=== PATIENT | male | born 1945 | race Caucasian/White ===

== ENCOUNTER → 2019-12-10 | Outpatient (CLI) | payer OTHER | END | disposition home or self-care (01) | LOC: SHCH 15:53 | PROVIDERS: ATTEND Internal Medicine Cardiovascular Disease | DX: R06.09 Other forms of dyspnea (principal); R07.9 Chest pain, unspecified | CPT/HCPCS: 93306; 93356 ==

== ENCOUNTER → 2023-09-30 | Outpatient (CLI) | payer OTHER ==
[2023-09-30 08:44] LABS: INR < 0.93 (0.85-1.15); PROTHROMBIN TIME 10.5 SEC (9.6-11.6)
[2023-09-30 08:45] LABS: PARTIAL THROMBOPLASTIN TIME 28.3 SEC (26.3-35.5)
== END | disposition home or self-care (01) ==
LOC: RAH 06:52 → EDBD 08:00
PROVIDERS: ATTEND Internal Medicine
DX: E04.1 Nontoxic single thyroid nodule (principal); Z79.01 Long term (current) use of anticoagulants
CPT/HCPCS: 10005; 36415; 76942; 85610; 85730; 88112; 88173; 88305; 88312

== ENCOUNTER → 2023-10-01 | Outpatient (CLI) | payer OTHER | END | disposition home or self-care (01) | LOC: RAH 08:26 | PROVIDERS: ATTEND Internal Medicine | DX: K44.9 Diaphragmatic hernia without obstruction or gangrene (principal); R13.10 Dysphagia, unspecified | CPT/HCPCS: 74220 ==

== ENCOUNTER 2024-03-15 11:47 | Emergency (ER) | payer OTHER ==
[~2024-03-15] VITALS: Ht 177.8 cm; Wt 79.4 kg
[2024-03-15 12:20] LABS: BASOPHILS # (AUTO) 0.04 K/uL (0.00-0.20); BASOPHILS % (AUTO) 0.4 % (0.0-5.0); EOSINOPHILS # (AUTO) 0.08 K/uL (0.00-0.70); EOSINOPHILS % (AUTO) 0.9 % (0.0-8.0); HEMATOCRIT 47.8 % (42-54); IMMATURE GRANULOCYTE ABSOLUTE 0.04 K/uL (0-1); LYMPHOCYTES % (AUTO) 33.4 % (21.0-51.0); MEAN CORPUSCULAR HEMOGLOBIN 32.2 pg (27.0-33.0); MEAN CORPUSCULAR HGB CONC 34.5 g/dL (32.0-36.0); MEAN CORPUSCULAR VOLUME 93.2 fL (79-99); MONOCYTES # (AUTO) 0.7 K/uL (0.1-1.0); MONOCYTES % (AUTO) 7.8 % (3.0-13.0); NEUTROPHILS # (AUTO) 5.1 K/uL (1.8-7.7); NEUTROPHILS % (AUTO) 57.1 % (40.0-77.0); PLATELET COUNT (AUTO) 255 K/uL (130-400); RED BLOOD CELL COUNT(AUTO) 5.13 MIL/uL (4.50-6.20); RED CELL DISTRIBUTION WIDTH 12.6 % (11.0-15.5); WHITE BLOOD COUNT (AUTO) 8.9 K/uL (4.8-10.8)
[2024-03-15 12:30] LABS: CREATININE 0.9 mg/dL (0.5-1.3); POTASSIUM 4.2 mmol/L (3.5-5.1)
[2024-03-15] MEDS: MAGNESIUM 2GM PREMIX 50ML 50 ML IV SCH (13:09)
[2024-03-15] MEDS: DILTIAZEM 25MG INJ IVP ONE (14:07)
[2024-03-15 14:19] VITALS: BP 118/76; PULSE 109; RESP 22; O2SAT 96
== END 2024-03-15 15:18 | disposition home or self-care (01) ==
LOC: EDH 11:47
DX: I48.91 Unspecified atrial fibrillation (principal); E11.9 Type 2 diabetes mellitus without complications; Z98.890 Other specified postprocedural states; Z88.8 Allergy status to other drugs, medicaments and biological substances
CPT/HCPCS: 99285; 96365; 71045; 96366; 96375; 83735; 84484; 80048; 85025; 36415; 93005; J3475; J3490

== ENCOUNTER → 2024-04-10 | Outpatient (CLI) | payer OTHER | END | disposition home or self-care (01) | LOC: SHCH 13:24 | PROVIDERS: ATTEND Internal Medicine Cardiovascular Disease | DX: I08.3 Combined rheumatic disorders of mitral, aortic and tricuspid valves (principal); I48.0 Paroxysmal atrial fibrillation; R06.02 Shortness of breath; E78.5 Hyperlipidemia, unspecified; E11.9 Type 2 diabetes mellitus without complications | CPT/HCPCS: 93306 ==

== ENCOUNTER → 2024-04-13 | Outpatient (CLI) | payer OTHER ==
[2024-04-13] MEDS: REGADENOSON 0.4 MG/5 ML PF SYG IVP ONE (15:32)
== END | disposition home or self-care (01) ==
LOC: SHCH 08:26
PROVIDERS: ATTEND Internal Medicine Cardiovascular Disease
DX: I25.10 Atherosclerotic heart disease of native coronary artery without angina pectoris (principal); R06.00 Dyspnea, unspecified
CPT/HCPCS: 78452; 96374; 93017; J2785; A9500 ×2

== ENCOUNTER 2024-09-30 05:57 | Day surgery (SDC) | payer OTHER ==
[2024-09-29 11:43] LABS: BASOPHILS # (AUTO) 0.04 K/uL (0.00-0.20); BASOPHILS % (AUTO) 0.5 % (0.0-5.0); EOSINOPHILS # (AUTO) 0.13 K/uL (0.00-0.70); EOSINOPHILS % (AUTO) 1.7 % (0.0-8.0); HEMATOCRIT 47.9 % (42-54); IMMATURE GRANULOCYTE ABSOLUTE 0.03 K/uL (0-1); LYMPHOCYTES # (AUTO) 2.6 K/uL (1.0-4.8); LYMPHOCYTES % (AUTO) 33.9 % (21.0-51.0); MEAN CORPUSCULAR HEMOGLOBIN 31.8 pg (27.0-33.0); MEAN CORPUSCULAR HGB CONC 32.8 g/dL (32.0-36.0); MEAN CORPUSCULAR VOLUME 97.2 fL (79-99); MONOCYTES # (AUTO) 0.6 K/uL (0.1-1.0); MONOCYTES % (AUTO) 8.3 % (3.0-13.0); NEUTROPHILS # (AUTO) 4.2 K/uL (1.8-7.7); NEUTROPHILS % (AUTO) 55.2 % (40.0-77.0); PLATELET COUNT (AUTO) 272 K/uL (130-400); RED BLOOD CELL COUNT(AUTO) 4.93 MIL/uL (4.50-6.20); RED CELL DISTRIBUTION WIDTH 12.4 % (11.0-15.5); WHITE BLOOD COUNT (AUTO) 7.6 K/uL (4.8-10.8)
[2024-09-29 11:50] LABS: INR 1.09 (0.85-1.15); PROTHROMBIN TIME 11.7 SEC (9.6-11.6)
[2024-09-29 11:52] LABS: PARTIAL THROMBOPLASTIN TIME 32.8 SEC (26.3-35.5)
[2024-09-29 12:36] LABS: CREATININE 0.8 mg/dL (0.5-1.3); POTASSIUM 4.1 mmol/L (3.5-5.1)
[2024-09-29 12:49] VITALS: BP 128/87; PULSE 78; RESP 16; TEMP 97.4
[~2024-09-30] VITALS: Ht 177.8 cm; Wt 81.6 kg
[2024-09-30] VITALS (18 sets, daily range): BP systolic 126–146; BP diastolic 70–82; PULSE 75–89; RESP 12–16; TEMP 97–97.4
[~2024-09-30 05:57] MED LIST: ACET-66 PO; ACYC-138 PO; ATOR40TA69 PO; AZEL137S11 NS; BRIN8DRO2 OP; EMPA25TA PO; FLUT15.845 NS; ICOS1CAP2 PO; LATA2.5D14 OP; METF-446 PO; PROP225C24 PO; RIVA20TA PO; SEMA2PEN SQ; TIMO5SOL10 OP; TRAZ-187 PO; [UNRECOGNIZED DRUG - REMARK] PO
[2024-09-30] MEDS ORDERED: MIDAZOLAM HCL 1 MG/ML 2ML VIAL ONE (06:52)
[2024-09-30] MEDS ORDERED: proPOFol 10 MG/ML 20ML VIAL IV ONE (06:52)
[2024-09-30] MEDS ORDERED: ondanSETRON 4MG INJ ONE (06:52)
[2024-09-30] MEDS ORDERED: phenylEPHRINE HCL 10 MG/ML 1ML VIAL IV ONE (06:52)
[2024-09-30] MEDS ORDERED: rocuRONium bROMide 10MG/1ML 5ML VL ONE (06:53)
[2024-09-30] MEDS ORDERED: LIDOCAINE PF 100MG/5ML (2%) SYRINGE 5ML ONE (06:53)
[2024-09-30] MEDS ORDERED: FENTanyl CITRate PF 50 MCG/1 ML 2ML VIAL ONE (06:53)
[2024-09-30] MEDS ORDERED: HEParin 10,000 UNIT/10ML (1,000 UNIT/ML) VIAL ONE ×2 (07:43→08:31)
[2024-09-30] MEDS ORDERED: LIDOCAINE HCL 1% MDV 50ML VIAL ONE (07:43)
[2024-09-30] MEDS ORDERED: HEParin-NS 1,000 UNIT/500 ML 500 ML IV ONE (07:43)
--- NOTE | 2024-09-30 07:43 | EKG ---
[facility] Test Date: 2024-09-30 Test Time: 07:05:27 Pat Name: WALDO BUNCH Department: [facility] Room: [facility] Gender: M [place]: [id number] : 1945 Requested By: JACOB MEJÍA Order Number: [id number] Reading MD: Moiz Ramirez Measurements Intervals [place] Rate: 87 P: 62 WV: 181 QRS: 58 QRSD: 94 T: 100 QT: 377 QTc: 455 Interpretive Statements Sinus rhythm Nonspecific T abnormalities, lateral leads Compared to ECG 03/24/2024 10:01:51 T-wave abnormality now present Electronically Signed On 09-30-2024 14:04:03 [employer] by Moiz Ramirez Please click the below link to view image of tracing.
[2024-09-30] MEDS ORDERED: HEParin-NS 1,000 UNIT/500 ML 1,000 ML IV ONE (07:55)
[2024-09-30] MEDS: 0.9%NACL 1000ML 1,000 ML IV ONE (08:06)
[2024-09-30] MEDS ORDERED: NEOSTIGMINE METHYLSULFATE 1MG/ML IV ONE (08:32)
[2024-09-30] MEDS ORDERED: GLYCOPYRROLATE 0.2 MG/ML 5 ML VIAL ONE (08:32)
[2024-09-30] MEDS ORDERED: PROTamine SULFate 10 MG/ML 25ML VIAL IV ONE (10:41)
[2024-09-30] MEDS ORDERED: PANT40TA55 PO (10:49)
[2024-09-30] MEDS ORDERED: SUCR1TAB28 PO (10:50)
[2024-09-30] MEDS ORDERED: acetaMINOPHEN WITH coDEINE 1 TAB TAB PO PRN (11:00)
[2024-09-30] MEDS ORDERED: acetaMINOPHEN 325 MG TAB PO PRN (11:00)
== END 2024-09-30 13:20 | disposition home or self-care (01) ==
LOC: DAH 05:57
PROVIDERS: ATTEND Internal Medicine Cardiovascular Disease
DX: I48.0 Paroxysmal atrial fibrillation (principal); I48.3 Typical atrial flutter; I10 Essential (primary) hypertension; E78.5 Hyperlipidemia, unspecified; G47.33 Obstructive sleep apnea (adult) (pediatric); E11.22 Type 2 diabetes mellitus with diabetic chronic kidney disease; E11.42 Type 2 diabetes mellitus with diabetic polyneuropathy; Z79.899 Other long term (current) drug therapy; Z82.49 Family history of ischemic heart disease and other diseases of the circulatory system; Z79.01 Long term (current) use of anticoagulants; Z98.890 Other specified postprocedural states; Z98.49 Cataract extraction status, unspecified eye; Z95.2 Presence of prosthetic heart valve; Z88.8 Allergy status to other drugs, medicaments and biological substances
CPT/HCPCS: 80048; 85025; 85610; 85730; 36415 ×2; 93656; 85347 ×5; 82948 ×2; 93005; C1894 ×3; C1732 ×3; A4649 ×2; C1760 ×3; C1766; J3010; J7030; J3490 ×3; J2003; J1644 ×4; J2250; J2704; J2405; J2710; J2371; A4215; A4222; A4221; A4663; A4216; A4606; J2720; A4223 ×3